=== PATIENT | male | born 2000 | race Caucasian/White ===

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

== ENCOUNTER 2022-04-14 08:56 | Emergency (ER) | payer SELFPAY ==
[2022-04-14 08:57] VITALS: BP 146/92; PULSE 88; RESP 18; TEMP 36.3; O2SAT 97; BMI 42.5
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
== END 2022-04-14 09:47 | disposition home or self-care (01) ==
PROVIDERS: Emergency Provider Emergency Medicine; PCP Pediatrics; Visit Provider Emergency Medicine
DX: S06.0X0A Concussion without loss of consciousness, initial encounter (principal); R03.0 Elevated blood-pressure reading, without diagnosis of hypertension; V49.9XXA Car occupant (driver) (passenger) injured in unspecified traffic accident, initial encounter
CPT/HCPCS: 99282

== ENCOUNTER 2022-06-06 06:24 | Emergency (ER) | payer SELFPAY ==
[2022-06-06 06:25] VITALS: BP 132/77; PULSE 64; RESP 18; TEMP 36.7; O2SAT 99; BMI 49.9
--- NOTE | 2022-06-06 06:49 | EX.ED.DYSGE1 ---
HPI History of Present Illness Chief Complaint: Other, Pain/Inj Informant: patient Narrative Narrative: Patient presents with a lump in his back. He also had some tingling down in his left small and ring finger and he is wondering if they are related. Patient noted the lump in his back about a week ago or so. It does not really bother him unless he hits right on it. No trauma to the area. This morning he was getting up out of bed and he leaned back to flop in bed because he was just really tired and wanted to lay down for a few minutes. When he did that he got a tingling sensation in his small finger and ring finger. He is not sure if he hit his elbow or if he hit the spot on his back. He is not having any shortness of breath. No fevers or chills. He is on no medications. [facility] Medical History Concussion Home Medications NK 05/03/18 [History Last Taken Unknown] Allergy/AdvReac Type Severity Reaction Status Date / Time No Known Allergies Allergy Verified 04/14/22 09:01 Social History household members: family Smoking Status: Never smoker seatbelt use: sometimes ROS ROS ED Constitutional Constitutional ED: Denies chills or fever(s) ENT ENT ED: Denies sore throat Cardiovascular Cardiovascular: Denies chest pain, palpitations or racing heartbeat Respiratory/Chest Respiratory/Chest: Denies cough or dyspnea Gastrointestinal Gastrointestinal: Denies nausea or vomiting Musculoskeletal Musculoskeletal: Denies arthralgias, back pain, myalgias or neck pain Integumentary Reports other Details: Lump on left back medial to scapula as in history of present illness. Neurologic Neurologic: Reports paresthesias; Denies headache(s) or weakness Allergic/Immunologic Allergic/Immunologic ED: Denies urticaria EXAM Physical Exam Narrative Exam Narrative: Patient awake alert sitting in bed no acute distress carries on normal conversation. HEENT shows no sign of trauma. Mucous membranes are moist. No thrush. Neck is supple and no pain with range of motion. No pain down the arm with range of motion or axial loading. Lungs are clear bilaterally. No pain with a deep breath and his saturations are normal at 99% on room air. Heart is regular without murmur gallop or rub. Abdomen is obese but otherwise nontender. Back does show what appears to be a sebaceous cyst about 1 and half centimeters around the medial aspect of his left scapula. It is not at all red or inflamed or tender. This is not infected. It does not need to be drained. It does not feel like a lipoma. 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 He does have a positive Tinel's with tapping at his ulnar nerve on the medial aspect of the left elbow. This does reproduce his symptoms. Capillary refill and distal pulses are normal. Neurologic no weakness or numbness. He does have Tinel's sign as above at the ulnar nerve area Const Vital Signs: 06/06/22 06:25 06/06/22 06:29 Temperature 98.0 F Temperature Source Temporal Pulse Rate 64 Respiratory Rate 18 Respiratory Effort Normal Respiratory Pattern Normal Blood Pressure 132/77 H Blood Pressure Mean 95 Pulse Ox 99 Oxygen Delivery Method Room Air MDM MDM MDM Narrative Medical decision making narrative: I explained to the patient that he has a sebaceous cyst. If he desires this could be removed but that is not something that we need to do here. I can refer him to a primary physician who can help arrange that. But I do not think this was the cause of the tingling of his small and ring finger. I think he likely hit his elbow. I explained that he can just ice and rest the area. If it continues to bother him he can try Motrin. If he develops any weakness he needs to return. Discharge Plan Triage Chief Complaint: Other, Pain/Inj ED Provider: Zain Elkins Dx/Rx/DC Orders Clinical Impression: Sebaceous cyst, Neuropathy, ulnar nerve Instructions: ED Epidermoid Cyst, No Infection, ED Ulnar Nerve Palsy Prescriptions: No Action NK Stand Alone Forms: Work Status Form Primary Care Provider: Rsusell Marcial Referrals: Lori Flores DO [Med Staff - [employer]] - 3-5 Days if not improving Russell Marcial MD [Primary Care Provider] - Disposition Disposition: Home, Self Care
== END 2022-06-06 07:18 | disposition home or self-care (01) ==
LOC: ED 07:11
PROVIDERS: Emergency Provider Emergency Medicine; Visit Provider Emergency Medicine
DX: L72.3 Sebaceous cyst (principal); G56.20 Lesion of ulnar nerve, unspecified upper limb
CPT/HCPCS: 99282